=== PATIENT | male | born 1975 | race African-American/Black ===

== ENCOUNTER 2017-02-02 09:42 | Emergency (ER) | payer SELFPAY ==
[2017-02-02] MEDS ORDERED: HYDROcodone/Acetaminophen 10/325 mg Tablet ONE (10:36)
[2017-02-02] MEDS ORDERED: Ketorolac Tromethamine 30 MG/ML VIAL ONE (10:37)
== END 2017-02-02 10:50 | disposition home or self-care (01) ==
LOC: NAV ERS 09:42
DX: H65.91 Unspecified nonsuppurative otitis media, right ear (principal); R03.0 Elevated blood-pressure reading, without diagnosis of hypertension; F17.210 Nicotine dependence, cigarettes, uncomplicated
CPT/HCPCS: 96372; J1885

== ENCOUNTER 2017-05-24 18:54 | Emergency (ER) | payer SELFPAY ==
[2017-05-24] MEDS ORDERED: Ketorolac Tromethamine 60 MG/2 ML VIAL ONE (19:33)
[2017-05-24] MEDS ORDERED: Cyclobenzaprine 10 MG TAB ONE ×2 (20:38→20:39)
[2017-05-24] MEDS ORDERED: predniSONE 20 MG TAB ONE (20:38)
== END 2017-05-24 21:00 | disposition home or self-care (01) ==
LOC: NAV ERS 18:54
DX: M54.41 Lumbago with sciatica, right side (principal); F17.210 Nicotine dependence, cigarettes, uncomplicated
CPT/HCPCS: 96372; J1885; J7506

== ENCOUNTER 2017-05-25 16:31 | Emergency (ER) | payer SELFPAY ==
[2017-05-25] MEDS ORDERED: Sodium Chloride 0.9% 1,000 ML ONE (16:43)
[2017-05-25] MEDS ORDERED: Acetaminophen 500 MG TAB ONE (17:51)
[2017-05-25] MEDS ORDERED: Ketorolac Tromethamine 30 MG/ML VIAL ONE (18:08)
== END 2017-05-25 18:58 ==
LOC: NAV ERS 16:31
DX: M62.830 Muscle spasm of back (principal)
CPT/HCPCS: 96360; 96372; J1885; J7050

== ENCOUNTER 2021-06-09 05:37 | Emergency (ER) | payer OTHER, SELFPAY ==
[2021-06-09] MEDS ORDERED: levETIRAcetam 500 MG TAB ONE (06:00)
== END 2021-06-09 06:35 ==
LOC: NAV ERS 05:37
DX: G40.909 Epilepsy, unspecified, not intractable, without status epilepticus (principal); I10 Essential (primary) hypertension; E78.5 Hyperlipidemia, unspecified; Z79.899 Other long term (current) drug therapy
CPT/HCPCS: 99284

== ENCOUNTER 2021-08-06 03:00 | Emergency (ER) | payer OTHER ==
[2021-08-06] MEDS ORDERED: Acetaminophen 500 MG TAB ONE (03:37)
[2021-08-06] MEDS ORDERED: Ondansetron ODT 4 MG TAB ONE (03:41)
== END 2021-08-06 03:20 ==
LOC: NAV ERS 03:00
DX: U07.1 COVID-19 (principal); I10 Essential (primary) hypertension; E78.5 Hyperlipidemia, unspecified; Z86.73 Personal history of transient ischemic attack (TIA), and cerebral infarction without residual deficits; Z79.899 Other long term (current) drug therapy
CPT/HCPCS: 99283; Q0162; U0003; U0005

== ENCOUNTER 2021-12-01 10:25 | Emergency (ER) | payer SELFPAY ==
[2021-12-01] MEDS ORDERED: Ketorolac Tromethamine 60 MG/2 ML VIAL ONE (10:39)
[2021-12-01] MEDS ORDERED: HYDROcodone/Acetaminophen 10/325 mg Tablet ONE (10:39)
[2021-12-01] MEDS ORDERED: Lidocaine 1% (PF) 30 ML VIAL ONE (11:19)
== END 2021-12-01 12:10 | disposition home or self-care (01) ==
LOC: NAV ERS 10:25
DX: L02.31 Cutaneous abscess of buttock (principal); F17.210 Nicotine dependence, cigarettes, uncomplicated; E78.5 Hyperlipidemia, unspecified; I10 Essential (primary) hypertension; Z79.899 Other long term (current) drug therapy
CPT/HCPCS: 10060; 87070; 87205; 96372; J1885; J2001

== ENCOUNTER 2021-12-03 15:09 | Emergency (ER) | payer SELFPAY | END 2021-12-03 15:32 | disposition home or self-care (01) | LOC: NAV ERS 15:09 | DX: Z48.817 Encounter for surgical aftercare following surgery on the skin and subcutaneous tissue (principal); I10 Essential (primary) hypertension; E78.5 Hyperlipidemia, unspecified; F17.210 Nicotine dependence, cigarettes, uncomplicated; Z79.899 Other long term (current) drug therapy | CPT/HCPCS: 99282 ==

== ENCOUNTER 2021-12-06 12:27 | Emergency (ER) | payer SELFPAY | END 2021-12-06 13:04 | disposition home or self-care (01) | LOC: NAV ERS 12:27 | DX: Z48.817 Encounter for surgical aftercare following surgery on the skin and subcutaneous tissue (principal); I10 Essential (primary) hypertension; E78.5 Hyperlipidemia, unspecified; F17.210 Nicotine dependence, cigarettes, uncomplicated; Z86.73 Personal history of transient ischemic attack (TIA), and cerebral infarction without residual deficits; Z79.899 Other long term (current) drug therapy | CPT/HCPCS: 99282 ==

== ENCOUNTER 2022-07-21 23:03 | Emergency (ER) | payer SELFPAY ==
[2022-07-21] MEDS ORDERED: Sodium Chloride 0.9% 1,000 ML ONE (23:25)
[2022-07-21] MEDS ORDERED: Ketorolac Tromethamine 30 MG/ML VIAL ONE (23:25)
[2022-07-21] MEDS ORDERED: Ondansetron PF 4 MG/2 ML Vial ONE (23:26)
[2022-07-21 23:33] LABS: #Eosinphils 0.3 thou/uL (0.0-0.7); #Lymphocytes 0.8 thou/uL (1.20-3.40); #Monocytes 0.5 thou/uL (0.11-0.59); #Neutrophils 5.1 thou/uL (1.40-6.50); %Basophils 0.3 % (0.0-1.0); %Eosinophils 3.9 % (0.0-10.0); %Lymphocytes 11.5 % (21.0-51.0); %Monocytes 7.2 % (0.0-10.0); %Neutrophils 77.1 % (42.0-75.0); Hemoglobin 16.5 g/dL (14.0-18.0); Mean Corpuscular Hemoglobin 30.1 pg (27.0-31.0); Mean Corpuscular Volume 91.3 fl (78.0-98.0); Mean Platelet Volume 9.2 fL (7.4-10.4); Platelet Count 210 10x3/uL (130-400); RBC Distribution Width 11.8 % (11.5-14.5); Red Blood Cell (RBC) Count 5.49 mill/uL (4.70-6.10); White Blood Cell (WBC) Count 6.6 10x3/uL (4.8-10.8)
[2022-07-21 23:57] LABS: BUN (Urea Nitrogen) 9 mg/dL (8.9-20.6); Calc. Creatinine Clearance 0 mL/min (70-130); Carbon Dioxide 22 mmol/L (22-29); Chloride 103 mmol/L (98-107); Estimated GFR 79; Glucose 100 mg/dL (70-105); Potassium 4.4 mmol/L (3.5-5.1); Sodium 137 mmol/L (136-145)
[2022-07-21 23:58] LABS: AST (SGOT) 23 U/L (5-34); Albumin 3.9 g/dL (3.5-5.0); Alkaline Phosphatase 82 U/L (40-110); Bilirubin, Total 0.4 mg/dL (0.2-1.2); Calcium 8.8 mg/dL (7.6-10.4); Globulin 3.8 g/dL (2.4-3.5); Protein, Total 7.7 g/dL (6.0-8.3)
[2022-07-21 23:59] LABS: ALT (SGPT) 19 U/L (8-55); Anion Gap 12 mmol/L (10-20); Lipase 34 U/L (8-78)
== END 2022-07-22 00:55 | disposition home or self-care (01) ==
LOC: NAV ERS 23:03
DX: K52.9 Noninfective gastroenteritis and colitis, unspecified (principal); E86.0 Dehydration; I10 Essential (primary) hypertension; F17.210 Nicotine dependence, cigarettes, uncomplicated; Z86.73 Personal history of transient ischemic attack (TIA), and cerebral infarction without residual deficits; Z79.899 Other long term (current) drug therapy
CPT/HCPCS: 80053; 83690; 85025; 96374; 96375; J1885; J2405; J7050

== ENCOUNTER 2022-10-06 16:06 | Emergency (ER) | payer OTHER, SELFPAY ==
[~2022-10-06 16:06] MED LIST: Iopamidol 370 76% 100 ML VIAL ONE
[2022-10-06] MEDS ORDERED: Ondansetron PF 4 MG/2 ML Vial ONE ×2 (16:21→16:54)
[2022-10-06] MEDS ORDERED: Morphine 2 MG/ML VIAL ONE (16:54)
[2022-10-06 17:07] LABS: ALT (SGPT) 23 U/L (8-55); AST (SGOT) 14 U/L (5-34); Albumin 3.9 g/dL (3.5-5.0); Alkaline Phosphatase 90 U/L (40-110); Anion Gap 11 mmol/L (10-20); BUN (Urea Nitrogen) 11 mg/dL (8.9-20.6); Bilirubin, Total 0.3 mg/dL (0.2-1.2); Calc. Creatinine Clearance 0 mL/min (70-130); Calcium 8.9 mg/dL (7.8-10.44); Carbon Dioxide 24 mmol/L (22-29); Chloride 108 mmol/L (98-107); Estimated GFR 91; Globulin 2.9 g/dL (2.4-3.5); Glucose 96 mg/dL (70-105); Protein, Total 6.8 g/dL (6.0-8.3); Sodium 139 mmol/L (136-145)
[2022-10-06 17:11] LABS: #Eosinphils 0.3 thou/uL (0.0-0.7); #Lymphocytes 1.5 thou/uL (1.20-3.40); #Monocytes 0.3 thou/uL (0.11-0.59); #Neutrophils 2.9 thou/uL (1.40-6.50); %Basophils 0.8 % (0.0-1.0); %Eosinophils 5.5 % (0.0-10.0); %Lymphocytes 29.7 % (21.0-51.0); %Monocytes 6.1 % (0.0-10.0); Hematocrit 48.7 % (42.0-52.0); Hemoglobin 15.6 g/dL (14.0-18.0); Mean Corpuscular HGB CONC 32.1 g/dL (32.0-36.0); Mean Corpuscular Hemoglobin 29.2 pg (27.0-31.0); Mean Corpuscular Volume 90.9 fl (78.0-98.0); Platelet Count 219 10x3/uL (130-400); Red Blood Cell (RBC) Count 5.35 mill/uL (4.70-6.10)
== END 2022-10-06 18:34 | disposition home or self-care (01) ==
LOC: NAV ERS 16:06
DX: S13.4XXA Sprain of ligaments of cervical spine, initial encounter (principal); S39.012A Strain of muscle, fascia and tendon of lower back, initial encounter; M16.0 Bilateral primary osteoarthritis of hip; M50.90 Cervical disc disorder, unspecified, unspecified cervical region; M51.36 Other intervertebral disc degeneration, lumbar region; I10 Essential (primary) hypertension; E78.5 Hyperlipidemia, unspecified; F17.210 Nicotine dependence, cigarettes, uncomplicated; Z79.899 Other long term (current) drug therapy
CPT/HCPCS: 70450; 71260; 72125; 74177; 80053; 85025; 96374; 96375; J2272; J2405; Q9967

== ENCOUNTER 2023-01-11 17:51 | Emergency (ER) | payer SELFPAY ==
[2023-01-11] MEDS ORDERED: AMOXicillin 250 MG CAP ONE (18:25)
[2023-01-11] MEDS ORDERED: Acetaminophen 500 MG TAB ONE (18:25)
== END 2023-01-11 18:28 | disposition home or self-care (01) ==
LOC: NAV ERS 17:51
DX: K04.7 Periapical abscess without sinus (principal); I10 Essential (primary) hypertension; E78.5 Hyperlipidemia, unspecified; F17.210 Nicotine dependence, cigarettes, uncomplicated
CPT/HCPCS: 99282

== ENCOUNTER 2024-01-10 01:25 | Emergency (ER) | payer OTHER, SELFPAY ==
[2024-01-10] MEDS ORDERED: Acetaminophen 325 MG TAB ONE (01:59)
[2024-01-10] MEDS ORDERED: Lisinopril 20 MG TAB ONE (02:00)
== END 2024-01-10 02:17 | disposition home or self-care (01) ==
LOC: NAV ERS 01:25
DX: I10 Essential (primary) hypertension (principal); R51.9 Headache, unspecified; F17.210 Nicotine dependence, cigarettes, uncomplicated
CPT/HCPCS: 99283

== ENCOUNTER 2024-11-27 18:25 | Emergency (ER) | payer OTHER ==
[2024-11-27] MEDS ORDERED: Ondansetron PF 4 MG/2 ML Vial ONE (19:27)
[2024-11-27 19:35] LABS: #Basophils 0.2 thou/uL (0.0-0.2); #Eosinophils 0.3 thou/uL (0.0-0.7); #Lymphocytes 1.5 thou/uL (1.20-3.40); #Monocytes 0.4 thou/uL (0.11-0.59); #Neutrophils 3.5 thou/uL (1.40-6.50); %Basophils 3.4 % (0.0-1.0); %Eosinophils 4.5 % (0.0-10.0); %Lymphocytes 25.7 % (21.0-51.0); %Monocytes 6.3 % (0.0-10.0); %Neutrophils 60.2 % (42.0-75.0); Hematocrit 48.0 % (42.0-52.0); Hemoglobin 16.6 g/dL (14.0-18.0); Mean Corpuscular Hemoglobin 29.4 pg (27.0-31.0); Mean Corpuscular Volume 84.9 fl (78.0-98.0); Platelet Count 299 10x3/uL (130-400); Red Blood Cell (RBC) Count 5.65 mill/uL (4.70-6.10); White Blood Cell (WBC) Count 5.8 10x3/uL (4.8-10.8)
[2024-11-27 19:47] LABS: ALT (SGPT) 17 U/L (Less than 45); AST (SGOT) 19 U/L (11-34); Albumin 3.9 g/dL (3.1-4.5); Alkaline Phosphatase 87 U/L (40-110); Anion Gap 14 mmol/L (10-20); BUN (Urea Nitrogen) 12 mg/dL (8.9-20.6); Bilirubin, Total 0.4 mg/dL (0.3-1.2); Calc. Creatinine Clearance 0 mL/min (70-130); Calcium 8.8 mg/dL (7.8-10.44); Carbon Dioxide 24 mmol/L (22-29); Chloride 104 mmol/L (98-107); Globulin 3.5 g/dL (2.4-3.5); Glucose 104 mg/dL (70-105); Potassium 3.5 mmol/L (3.5-5.1); Sodium 138 mmol/L (136-145)
[2024-11-27] MEDS ORDERED: Lisinopril 20 MG TAB ONE (20:18)
== END 2024-11-27 20:35 | disposition home or self-care (01) ==
LOC: NAV ERS 18:25
DX: G35.D Multiple sclerosis, unspecified (principal); M54.9 Dorsalgia, unspecified; I10 Essential (primary) hypertension; F17.210 Nicotine dependence, cigarettes, uncomplicated; Z86.73 Personal history of transient ischemic attack (TIA), and cerebral infarction without residual deficits; Z79.899 Other long term (current) drug therapy
CPT/HCPCS: 80053; 85025; 96365; 96375; J2919

== ENCOUNTER 2025-02-19 00:50 | Emergency (ER) | payer OTHER ==
[2025-02-19] MEDS ORDERED: Lisinopril 20 MG TAB ONE (01:34)
== END 2025-02-19 01:40 | disposition home or self-care (01) ==
LOC: NAV ERS 00:50
DX: I10 Essential (primary) hypertension (principal); G35.D Multiple sclerosis, unspecified; R56.9 Unspecified convulsions; F17.210 Nicotine dependence, cigarettes, uncomplicated; Z86.73 Personal history of transient ischemic attack (TIA), and cerebral infarction without residual deficits; Z79.899 Other long term (current) drug therapy
CPT/HCPCS: 99283